=== PATIENT | female | born 1980 | race American Indian/Alaskan Native ===

== ENCOUNTER 2018-10-09 16:15 | Emergency (ER) | payer OTHER ==
[2018-10-09 16:21] VITALS: BP 154/101
--- NOTE | 2018-10-09 16:26 | Emergency Department Report ---
Blank Doc - Documentation Documentation: This is a 38-year-old female that presents with acute on chronic headache. Bola goetz stated that this is a typical migraine headache and does see a neurologist. Denies worst headache or thunderclap. Denies any neuro defects. This initial assessment/diagnostic orders/clinical plan/treatment(s) is/are subject to change based on patient's health status, clinical progression and re- assessment by fellow clinical providers in the ED. Further treatment and workup at subsequent clinical providers discretion. Patient/guardians urged not to elope from the ED as their condition may be serious if not clinically assessed and managed. Initial orders include: 1- Patient sent to [facility] for further evaluation and treatment
[2018-10-09] MEDS ORDERED: NACL 0.9% 1000 ML 1,000 ML IV ONE (17:23)
[2018-10-09] MEDS ORDERED: TORADOL IV ONE (17:23)
[2018-10-09] MEDS ORDERED: ZOFRAN IV ONE (17:23)
--- NOTE | 2018-10-09 18:57 | Emergency Department Report ---
ED Headache HPI - General Chief Complaint: Headache Stated Complaint: DIZZY/MIGRAINE Time Seen by Provider: 10/09/18 16:24 Source: patient, family - History of Present Illness Initial Comments: She is a 38-year-old female who comes to the ER complaining of acute on chronic migraine pain. She states that her headache has not been medically relieved by her Maxalt which Dr. Stinson gives her. She states that she has reached her max dose for the day. Patient is alert and oriented with no focal neuro deficit. Patient has a chronic history of migraines and states that her last scan was 2 years ago [place]. She states that she is claustrophobic and Dr. Stinson has not been able to find S [place] that would accommodate her having an open head image. Patient reports photophobia. She has no active nausea or vomiting. Timing/Duration: 24 hours Quality: mild Head Injury Location: global Recent Head Trauma: no recent headache/trauma, chronic headaches Modifying Factors: worse with: cold therapy, exposure to light, immobilization, medication, movement, rest, other Associated Symptoms: denies: denies symptoms, confusion, fatigue, facial pain, fever/chills, flushing, loss of consciousness, nausea/vomiting, nasal congestion , nasal drainage, numbness in legs/feet, rash, seizures, sinus infection, stiff neck, vision changes, weakness, other Allergies/Adverse Reactions: Allergies No Known Allergies Allergy (Unverified 10/09/18 16:21) ED Review of Systems ROS: Stated complaint: DIZZY/MIGRAINE Other details as noted in HPI Comment: All other systems reviewed and negative ED Past Medical Hx - Past Medical History Previous Medical History?: Yes Hx Headaches / Migraines: Yes Additional medical history: PCOS - Surgical History Past Surgical History?: Yes Additional Surgical History: D and C x 2 - Family History Family history: no significant - Social History Smoking Status: Never Smoker ED Physical Exam - General Limitations: No Limitations General appearance: alert, in no apparent distress - Head Head exam: Present: atraumatic, normocephalic - Eye Eye exam: Present: normal appearance, PERRL, EOMI - ENT ENT exam: Present: mucous membranes moist - Neck Neck exam: Present: normal inspection, full ROM - Respiratory Respiratory exam: Present: normal lung sounds bilaterally - Cardiovascular Cardiovascular Exam: Present: regular rate - GI/Abdominal GI/Abdominal exam: Present: soft - Rectal Rectal exam: Present: deferred - External exam: Present: normal external exam - Extremities Exam Extremities exam: Present: normal inspection - Back Exam Back exam: Present: normal inspection, full ROM - Neurological Exam Neurological exam: Present: alert, oriented X3, CN II-XII intact, normal gait, reflexes normal - Psychiatric Psychiatric exam: Present: normal affect, normal mood - Skin Skin exam: Present: warm, dry, intact ED Course Vital Signs 10/09/18 16:19 Temperature 99.2 F Pulse Rate 123 H Respiratory 20 Rate Blood Pressure 154/101 O2 Sat by Pulse 97 Oximetry - Reevaluation(s) Reevaluation #1: 10/09/18 19:08 FEELING BETTER P MEDS VSS NO FOCAL NEURO DEFICIT ED Medical Decision Making - Medical Decision Making ac migraine pain NS/toradol/zofran given neuro intact no focal deficit no hx htn- states bp inc due to pain hr 90 on reexam dc home with follow up with Dr Stinson Vital Signs 10/09/18 16:19 Temperature 99.2 F Pulse Rate 123 H Respiratory 20 Rate Blood Pressure 154/101 O2 Sat by Pulse 97 Oximetry Critical care attestation.: If time is entered above; I have spent that time in minutes in the direct care of this critically ill patient, excluding procedure time. ED Disposition Clinical Impression: Migraine Disposition: DC-01 TO HOME OR SELFCARE Is pt being admited?: No Does the pt Need Aspirin: No Condition: Stable Instructions: Migraine Headache (ED) Additional Instructions: FOLLOW UP WITH DR STINSON FOR MEDICATION REGIMEN HYDRATE WELL WITH WATER Referrals: JUAN BRANHAM MD [Primary Care Provider] - 3-5 Days Time of Disposition: 18:56
== END 2018-10-09 19:35 | disposition home or self-care (01) ==
LOC: ED 16:15
DX: G43.909 Migraine, unspecified, not intractable, without status migrainosus (principal)
CPT/HCPCS: 96374; 96375; 99282; J1885; J2405; J7030